=== PATIENT | male | born 1955 | race Caucasian/White ===

== ENCOUNTER → 2021-03-14 | Day surgery (SDC) | payer MEDICARE, BC ==
[~2021-03-14] MED LIST: AMLODIPINE BESYL5 MG PO; ASPIRIN81 MG PO; ATORVASTATIN CA10 MG PO; DEXAMETHASONE SOD PHOS INJ 4 MG/ML VIAL ONE; EPINEPHRINE HCL 1:1000 1ML 1 MG/ML AMP ONE; FENTANYL CITRATE/PF 100MCG/2 ML INJ ONE; FLOMAX0.4 MG PO; GLYCOPYRROLATE INJ 0.2 MG/ML VIAL ONE; INDERAL LA60 MG PO; LAMOTRIGINE100 MG PO; LIDOCAINE 1% W/EPINEPHRINE 20 ML VIAL ONE; LIDOCAINE HCL 2% LOCAL INJ 5 ML SDV VIAL INJ ONE; MIDAZOLAM HCL 2 MG/2 ML VIAL ONE; NEOSTIGMINE 1 MG/ML 10ML VIAL ONE; ONDANSETRON HCL INJ 2MG/ML 2ML 2 MG/ML VIAL ONE; PAXIL20 MG PO; POVIDONE IODINE 0.05% 0.05 % ML PO ONE; PROPOFOL IV EMULSION 10 MG/ML 20 ML VIAL ONE; ROCURONIUM BROMIDE 10 MG/ML 5ML VIAL IV ONE; SEVOFLURANE INHAL SOLN 250 ML PEN BTL ONE; TRINATAL RX 11 EACH; VITAMIN D31 GM
[2021-03-14 09:41] VITALS: BP 151/79
== END | disposition home or self-care (01) ==
LOC: OR 05:23
PROVIDERS: ATTEND Otolaryngology Otolaryngology/Facial Plastic Surgery
DX: J32.0 Chronic maxillary sinusitis (principal); J34.2 Deviated nasal septum; J32.1 Chronic frontal sinusitis; J32.2 Chronic ethmoidal sinusitis; J32.3 Chronic sphenoidal sinusitis; J34.89 Other specified disorders of nose and nasal sinuses; K21.9 Gastro-esophageal reflux disease without esophagitis; R00.1 Bradycardia, unspecified; G47.33 Obstructive sleep apnea (adult) (pediatric); I10 Essential (primary) hypertension; Z79.82 Long term (current) use of aspirin
CPT/HCPCS: 31253; 31259; 31267; 71046; 88305; 93005; J0171; J1100; J2001; J2250; J2405; J2704; J2710; J3010